=== PATIENT | female | born 1960 | race Caucasian/White ===

== ENCOUNTER 2017-12-06 12:06 | Day surgery (SDC) | payer BC, MEDICARE ==
[2017-12-06] MEDS: PHENYLEPHRINE 0.5% NASAL SPRAY 15 ML As Ordered (14:02)
[2017-12-06] MEDS: LIDOCAINE W/EPINEPHRINE 1% 20ML VIAL As Ordered (14:28)
[2017-12-06] MEDS: SILVER NITRATE APPLICATOR As Ordered ×3 (14:33→15:18)
[2017-12-06] MEDS ORDERED: MIDAZOLAM INJ 2 MG/2 ML VIAL (J2250) As Ordered (15:18)
[2017-12-06] MEDS ORDERED: fentaNYL 100 MCG/2 ML INJECTION (J3010) As Ordered (15:18)
[2017-12-06] MEDS ORDERED: ONDANSETRON 4MG/2ML VIAL (J2405) As Ordered (15:44)
[2017-12-06] MEDS: ONDANSETRON 4MG/2ML VIAL (J2405) IV (15:44)
[2017-12-06] MEDS ORDERED: fentaNYL 100 MCG/2 ML INJECTION (J3010) IV (15:45)
[2017-12-06] MEDS ORDERED: PERCOCET 5MG/325MG TAB PO (15:45)
[2017-12-06] MEDS ORDERED: HYDROmorphone HCL 1 MG/ML SYRINGE (J1170) IV (15:45)
[2017-12-06] MEDS: LR 1,000 ML IV (15:45)
[2017-12-06] MEDS ORDERED: LR 1,000 ML IV (16:00)
[2017-12-06] MEDS ORDERED: METOCLOPRAMIDE INJ 10MG/2ML VIAL (J2765) As Ordered (16:09)
[2017-12-06] MEDS: METOCLOPRAMIDE INJ 10MG/2ML VIAL (J2765) IV (16:22)
[2017-12-06] MEDS ORDERED: ACETAMINOPHEN TAB 650MG DOSE (2X325MG) As Ordered (18:34)
[2017-12-06] MEDS: ACETAMINOPHEN TAB 650MG DOSE (2X325MG) PO (18:35)
== END 2017-12-06 19:26 | disposition home or self-care (01) ==
LOC: M SDC 19:26
DX: J95.09 Other tracheostomy complication (principal); I25.2 Old myocardial infarction; J44.9 Chronic obstructive pulmonary disease, unspecified; G47.33 Obstructive sleep apnea (adult) (pediatric); G62.9 Polyneuropathy, unspecified; Z79.899 Other long term (current) drug therapy; Z79.82 Long term (current) use of aspirin; Z72.0 Tobacco use; Z99.81 Dependence on supplemental oxygen; Z96.1 Presence of intraocular lens; Z95.5 Presence of coronary angioplasty implant and graft
CPT/HCPCS: 31615

== ENCOUNTER → 2020-03-07 | Outpatient (CLI) | payer BC, MEDICARE ==
[~2020-03-07] MED LIST: ALBU83IN INH; ASPI81TA26 PO; ATIV1TAB10 PO; AZIT500T5 PO; BACT2CRE TOP; BISA5TAB13 PO; BISA5TAB29 PO; CALC1TAB9 PO; CALCTAB9 PO; COLA100C5 PO; EFFE75CA2 PO; ERYT-52 PO; FLUT22IN INH; IPRA0.00 IN; IVIG IV; LIQULIQ6 PO; LISI-542 PO; METF500T13 PO; MIRA3350 PO; MUCI600T31 PO; MUCI600T37 PO; MULT1TAB8 PO; NITR4TASL SL; PERC5TAB12 PO; PROAAER10 INH; REME15TA PO; ROBISYP PO; SENN8.6C PO; THEO200T12 PO; TYLE325T5 PO; VITA200015 PO; VITAD1000T PO; ZOFR4TAB16 PO; [UNRECOGNIZED DRUG - OTHER] PO; solumedrol IV
== END ==
LOC: M LABSMTC 10:00
PROVIDERS: ATTEND Family Medicine
DX: Z01.818 Encounter for other preprocedural examination (principal); Z11.59 Encounter for screening for other viral diseases

== ENCOUNTER 2020-03-09 06:18 | Day surgery (SDC) | payer BC, MEDICARE ==
[~2020-03-09] VITALS: Ht 165.1 cm; Wt 74.8 kg
[~2020-03-09 06:18] MED LIST changes: +LIDOCAINE 1% MDV 20ML VIAL SQ PRN
[2020-03-09] MEDS ORDERED: dexameTHASONE 4 MG/ML 1ML VIAL (J1100 PER 1MG) IV ONE (06:30)
[2020-03-09] MEDS ORDERED: LR 1,000 ML IV ONE (06:30)
[2020-03-09] MEDS ORDERED: PHENYLEPHRINE 0.5% NASAL SPRAY 15 ML As Ordered ONE (07:11)
[2020-03-09] MEDS ORDERED: LIDOCAINE W/EPINEPHRINE 1% 20ML VIAL As Ordered ONE (07:11)
[2020-03-09] MEDS ORDERED: dexameTHASONE 4 MG/ML 1ML VIAL (J1100 PER 1MG) As Ordered ONE ×2 (07:12→08:09)
[2020-03-09] MEDS ORDERED: ONDANSETRON 4MG/2ML VIAL As Ordered ONE (07:13)
[2020-03-09] MEDS ORDERED: MIDAZOLAM INJ 2MG/2ML VIAL (J2250 PER 1MG) As Ordered ONE (07:16)
[2020-03-09] MEDS ORDERED: propofoL 200 MG/20 ML VIAL As Ordered ONE (07:48)
[2020-03-09] MEDS ORDERED: fentaNYL 100 MCG/2 ML INJECTION (J3010) IV PRN (08:45)
[2020-03-09] MEDS ORDERED: LR 1,000 ML IV SCH ×2 (08:45)
[2020-03-09] MEDS ORDERED: ONDANSETRON 4MG/2ML VIAL IV PRN (08:45)
[2020-03-09 10:19] VITALS: BP 103/63
--- NOTE | 2020-03-09 14:47 | ECGEPIP ---
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
--- NOTE | 2020-03-09 16:51 | RO ---
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 PROCEDURE: 1. Dilation of the tracheal stoma. 2. Exchange of the tracheostomy tube, Shiley #6 cuffed, nonfenestrated. SURGEON: Ruddy Lira MD JEEPER OPERATOR: RALPH Paul ANESTHESIA: General. CLINICAL PREAMBLE: This 59-year-old woman who has had the tracheostomy done at another institution many years ago due to respiratory failure followed by multiple revisions surgeries done to the tracheal stoma without long-term successful complained of difficulty with using the cuffed tube at night for her ventilatory requirement. She has been receiving exchange of the tracheostomy tube every 2-3 months. However, the exchanges are becoming more difficult due to stenosis of the tracheal stoma. As such, management options including surgery listed above have been discussed. The patient understood and consented to the procedure. DESCRIPTION OF PROCEDURE: The patient was identified in preop holding, and brought to the operating room in stable condition. In supine position on the operating table, the patient received general anesthesia via the existing tracheostomy tube without difficulty. All personnel in the operating room (OR) wore the appropriate personal protective equipment (PPE), including the N95 mask due to the current COVID-19 pandemic. At this time, the shoulder roll was placed to extend the neck. The anterior neck was then prepped and draped in the usual fashion for the procedure. The trach tie was released, the tracheostomy tube was then successfully removed. The tracheal stoma was visualized and found to be free of granulation tissue. Using the three-prong tracheal dilator, the tracheostomy stoma was successfully dilated. The Shiley #6 cuffed non-fenestrated tube was then successfully introduced into the tracheal stoma and into the tracheal lumen. Ventilatory circuit was successfully reattached to the new tracheostomy tube, the cuff was inflated without difficulty. The new trach tie was then applied. At the end of the procedure, sponge and instrument counts were correct. No complication was encountered. Estimated blood loss was less than 1 mL. General anesthesia was reversed, and the patient was awakened and taken to the recovery room in stable condition.
== END 2020-03-09 10:29 | disposition home or self-care (01) ==
LOC: M SDC 06:18
PROVIDERS: ATTEND Otolaryngology
DX: J95.09 Other tracheostomy complication (principal); Y83.3 Surgical operation with formation of external stoma as the cause of abnormal reaction of the patient, or of later complication, without mention of misadventure at the time of the procedure; J44.9 Chronic obstructive pulmonary disease, unspecified; I25.10 Atherosclerotic heart disease of native coronary artery without angina pectoris; I10 Essential (primary) hypertension; I25.2 Old myocardial infarction; Z98.61 Coronary angioplasty status; R73.09 Other abnormal glucose; Z79.84 Long term (current) use of oral hypoglycemic drugs; Z79.82 Long term (current) use of aspirin; Z79.899 Other long term (current) drug therapy; Z87.891 Personal history of nicotine dependence; Z88.2 Allergy status to sulfonamides
CPT/HCPCS: 31899; 93005; J1100; J2250; J2405

== ENCOUNTER → 2020-10-17 | Outpatient (CLI) | payer BC, MEDICARE ==
[~2020-10-17] MED LIST changes: -BISA5TAB13 PO; +BISA5TAB15 PO; +D31000TA2 PO; +FLUT05CR; -LIDOCAINE 1% MDV 20ML VIAL SQ PRN; +MIRT-62 PO; -REME15TA PO; +THEO1CAP5; -VITAD1000T PO
== END ==
LOC: M LABSMTC 08:33
PROVIDERS: ATTEND Anesthesiology
DX: Z01.812 Encounter for preprocedural laboratory examination (principal); Z20.828 Contact with and (suspected) exposure to other viral communicable diseases

== ENCOUNTER → 2020-12-05 | Outpatient (CLI) | payer BC, MEDICARE ==
[~2020-12-05] MED LIST changes: -LISI-542 PO; +LISI-898 PO; -THEO1CAP5; +THEO1CAP5 PO; +[UNRECOGNIZED DRUG - OTHER] PO
== END ==
LOC: M LABSMTC 10:16
PROVIDERS: ATTEND Anesthesiology
DX: Z01.812 Encounter for preprocedural laboratory examination (principal); Z20.822 Contact with and (suspected) exposure to COVID-19

== ENCOUNTER 2020-12-10 06:04 | Day surgery (SDC) | payer BC, MEDICARE ==
[~2020-12-10] VITALS: Ht 165.1 cm; Wt 74.8 kg
[~2020-12-10 06:04] MED LIST changes: +LR 1,000 ML IV ONE; +dexameTHASONE 4 MG/ML 1ML VIAL (J1100 PER 1MG) IV ONE
[2020-12-10] MEDS ORDERED: LIDOCAINE W/EPINEPHRINE 1% 20ML VIAL As Ordered ONE (07:07)
[2020-12-10] MEDS ORDERED: PHENYLEPHRINE 0.5% NASAL SPRAY 15 ML As Ordered ONE (07:07)
[2020-12-10] MEDS ORDERED: MIDAZOLAM INJ 2MG/2ML VIAL (J2250 PER 1MG) As Ordered ONE (07:08)
[2020-12-10] MEDS ORDERED: LIDOCAINE 2% 100MG/5ML SDV (FOR ANES.) As Ordered ONE (07:08)
[2020-12-10] MEDS ORDERED: ONDANSETRON 4MG/2ML VIAL As Ordered ONE (07:08)
[2020-12-10] MEDS ORDERED: propofoL 200 MG/20 ML VIAL As Ordered ONE (07:08)
[2020-12-10] MEDS ORDERED: dexameTHASONE 4 MG/ML 1ML VIAL (J1100 PER 1MG) As Ordered ONE (07:09)
[2020-12-10] MEDS ORDERED: SILVER NITRATE APPLICATOR As Ordered ONE (07:58)
[2020-12-10] MEDS ORDERED: oxyCODONE 5MG TAB PO PRN (08:45)
[2020-12-10] MEDS ORDERED: fentaNYL 100 MCG/2 ML INJECTION (J3010) IV PRN (08:45)
[2020-12-10] MEDS ORDERED: ONDANSETRON 4MG/2ML VIAL IV PRN (08:45)
[2020-12-10] MEDS ORDERED: LR 1,000 ML IV SCH ×2 (08:45)
[2020-12-10 10:30] VITALS: BP 134/74
--- NOTE | 2021-01-06 12:22 | RO ---
OPERATIVE NOTE DATE OF OPERATION: 12/10/2020 PREOPERATIVE DIAGNOSIS: Tracheostomy complication. POSTOPERATIVE DIAGNOSIS: Tracheostomy complication. PROCEDURE PERFORMED: 1. Dilation of the tracheal stoma. 2. Placement of the #6 Shiley cuffed fenestrated tracheostomy tube. ANESTHESIA: General. 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 She requires tracheostomy at night for ventilatory support of her respiratory system. She requires change of the new tracheostomy tube approximately every 2-3 months. Due to the stenotic nature of the tracheostomy stoma, the patient was brought to the operating room to have the procedure performed. Risks and benefits of the procedure have been discussed. She understood and consented to the procedure. DESCRIPTION OF PROCEDURE: The patient was identified and brought to the operating room in stable condition. In the supine position on the operating table, the patient received general anesthesia followed by ventilation via the existing tracheostomy tube. The existing tracheostomy tube was then successfully extracted. Using the tracheal dilator, as well as a long nasal speculum, the tracheostomy stoma was successfully dilated. No evidence of gross granulation tissue was identified around the tracheostomy stoma site. No evidence of gross mucosal lesion was noted at the level of the tracheal stoma as well. At this time, the #6 cuffed fenestrated Shiley tracheostomy tube was inserted under direct visualization into the trachea. Good ventilatory support was noted upon connection of the anesthesia ventilatory circuit to the new tracheostomy tube. At the end of the procedure, sponge and instrument counts were correct. No complications were noted. Estimated blood loss was less than 1 mL. General anesthesia was reversed and the patient was awakened and taken to the recovery room in stable condition.
== END 2020-12-10 10:30 | disposition home or self-care (01) ==
LOC: M SDC 06:04
PROVIDERS: ATTEND Otolaryngology
DX: J95.00 Unspecified tracheostomy complication (principal); J44.9 Chronic obstructive pulmonary disease, unspecified; G61.81 Chronic inflammatory demyelinating polyneuritis; Z87.891 Personal history of nicotine dependence; I25.10 Atherosclerotic heart disease of native coronary artery without angina pectoris; Z98.61 Coronary angioplasty status; E11.9 Type 2 diabetes mellitus without complications; I10 Essential (primary) hypertension; I25.2 Old myocardial infarction; Z79.82 Long term (current) use of aspirin; Z79.899 Other long term (current) drug therapy; F41.9 Anxiety disorder, unspecified; L40.9 Psoriasis, unspecified; R32 Unspecified urinary incontinence
CPT/HCPCS: 31502; J1100; J2250; J2405

== ENCOUNTER → 2021-05-07 | Outpatient (CLI) | payer BC, MEDICARE ==
[~2021-05-07] MED LIST changes: +CALTTAB6 PO; +ERGO500029 PO; -LR 1,000 ML IV ONE; +METF10004 PO; +MM S100C PO; +SALMDISK INH; +VITA30004 PO; -dexameTHASONE 4 MG/ML 1ML VIAL (J1100 PER 1MG) IV ONE
== END ==
LOC: M LABSMTC 11:49
PROVIDERS: ATTEND Anesthesiology
DX: Z01.818 Encounter for other preprocedural examination (principal); Z20.822 Contact with and (suspected) exposure to COVID-19

== ENCOUNTER 2021-05-12 07:53 | Day surgery (SDC) | payer BC, MEDICARE ==
[~2021-05-12] VITALS: Ht 165.1 cm; Wt 70.7 kg
[~2021-05-12 07:53] MED LIST changes: +LIDOCAINE 1% MDV 20ML VIAL SQ PRN; +LR 1,000 ML IV ONE; +dexameTHASONE 4 MG/ML 1ML VIAL (J1100 PER 1MG) IV ONE
[2021-05-12] MEDS ORDERED: METOCLOPRAMIDE INJ 10MG/2ML VIAL (J2765 PER 1) As Ordered ONE (09:17)
[2021-05-12] MEDS ORDERED: ONDANSETRON 4MG/2ML VIAL As Ordered ONE (09:17)
[2021-05-12] MEDS ORDERED: MIDAZOLAM INJ 2MG/2ML VIAL (J2250 PER 1MG) As Ordered ONE (09:17)
[2021-05-12] MEDS ORDERED: fentaNYL 100 MCG/2 ML INJECTION (J3010) As Ordered ONE (09:18)
[2021-05-12] MEDS ORDERED: LIDOCAINE W/EPINEPHRINE 1% 20ML VIAL As Ordered ONE (09:22)
[2021-05-12] MEDS ORDERED: PHENYLEPHRINE 0.5% NASAL SPRAY 15 ML As Ordered ONE (09:23)
[2021-05-12] MEDS ORDERED: METHYLENE BLUE 0.5% (5MG/ML) 10 ML AMP (PROVAYBLUE) As Ordered ONE (09:23)
[2021-05-12] MEDS ORDERED: CETACAINE SPRAY 5GM As Ordered ONE (09:57)
[2021-05-12] MEDS ORDERED: LIDOCAINE 2% 100MG/5ML SDV (FOR ANES.) As Ordered ONE (10:13)
[2021-05-12] MEDS ORDERED: propofoL 200 MG/20 ML VIAL As Ordered ONE (10:13)
[2021-05-12] MEDS ORDERED: dexameTHASONE 4 MG/ML 1ML VIAL (J1100 PER 1MG) As Ordered ONE (10:13)
[2021-05-12] MEDS ORDERED: oxyCODONE 5MG TAB PO PRN (10:30)
[2021-05-12] MEDS ORDERED: ONDANSETRON 4MG/2ML VIAL IV PRN (10:30)
[2021-05-12] MEDS ORDERED: METOCLOPRAMIDE INJ 10MG/2ML VIAL (J2765 PER 1) IV PRN (10:30)
[2021-05-12] MEDS ORDERED: MEPERIDINE INJ 25 MG/ML VIAL (J2175) IV PRN (10:30)
[2021-05-12] MEDS ORDERED: fentaNYL 100 MCG/2 ML INJECTION (J3010) IV PRN (10:30)
[2021-05-12] MEDS ORDERED: LR 1,000 ML IV SCH ×2 (10:30→10:35)
[2021-05-12 11:32] VITALS: BP 95/51
--- NOTE | 2021-05-13 09:50 | RO ---
OPERATIVE NOTE DATE OF OPERATION: 05/12/2021 PREOPERATIVE DIAGNOSIS: Tracheostomy complication. POSTOPERATIVE DIAGNOSIS: Tracheostomy complication. PROCEDURE: Exchange of tracheostomy tube with a Shiley #6 cuff nonfenestrated. SURGEON: Ruddy Lira MD. WIRE INSERTER: None. ANESTHESIA: General. CLINICAL PREAMBLE: This 60-year-old woman has had tracheostomy with multiple revision tracheostomy procedures performed in the past decade. The tracheostomy stoma remains stenotic and difficult to have tracheostomy tube exchange in the office. The patient required using the ventilatory machine at night to maintain adequate oxygenation. Periodic exchange of the tracheostomy every five to six months is needed. The patient is intolerant to have the tracheostomy tube exchanged in the office. Management options including exchange of the tracheostomy tube in the operating room under general anesthesia have been discussed. The patient understood and consented to the procedure. OR NARRATION: Patient was identified in preoperative holding and brought to the operating room in stable condition. In the supine position on the operating room table, patient received propofol and oxygenation via the existing tracheostomy tube. Cetacaine spray was applied into the tracheostomy tube and around the tracheostomy stoma. The tracheostomy tube was then successfully removed. The tracheostomy stoma was then dilated using the tracheostomy dilator. No granulation tissue was noted around the tracheostomy stoma. A new Shiley #6 cuffed nonfenestrated tube was then successfully inserted into the trachea lumen under direct visualization. Good breathing was noted in both sides of the lungs. At the end of the procedure, sponge and instrument counts were correct. No complications were encountered. Estimated blood loss was 1 mL. General anesthesia was reviewed, the patient was awakened, and taken to the recovery room in stable condition.
== END 2021-05-12 11:32 | disposition home or self-care (01) ==
LOC: M SDC 07:53
PROVIDERS: ATTEND Otolaryngology
DX: J95.09 Other tracheostomy complication (principal); J96.10 Chronic respiratory failure, unspecified whether with hypoxia or hypercapnia; G61.81 Chronic inflammatory demyelinating polyneuritis; I25.10 Atherosclerotic heart disease of native coronary artery without angina pectoris; I25.2 Old myocardial infarction; Z95.5 Presence of coronary angioplasty implant and graft; I10 Essential (primary) hypertension; E11.9 Type 2 diabetes mellitus without complications; F41.9 Anxiety disorder, unspecified; J44.9 Chronic obstructive pulmonary disease, unspecified; Z87.891 Personal history of nicotine dependence; Z88.2 Allergy status to sulfonamides; Z79.899 Other long term (current) drug therapy; Z79.82 Long term (current) use of aspirin; Z79.2 Long term (current) use of antibiotics; Z79.51 Long term (current) use of inhaled steroids; Z79.84 Long term (current) use of oral hypoglycemic drugs
CPT/HCPCS: 31502; J1100; J2250; J2405; J3010

== ENCOUNTER → 2021-10-08 | Day surgery (SDC) | payer BC, MEDICARE ==
[~2021-10-08] MED LIST changes: +ACETAMINOPHEN TAB 650MG DOSE (2X325MG) PO PRN; +BUPIVACAINE/EPIN 0.25% 30 ML VIAL As Ordered ONE; +HOME MED LIST COMPLETE! XX SCH; -LIDOCAINE 1% MDV 20ML VIAL SQ PRN; +LIDOCAINE 2% 100MG/5ML SDV (FOR ANES.) As Ordered ONE; -LISI-898 PO; +LISI5TAB11 PO; -LR 1,000 ML IV ONE; +LR 1,000 ML IV SCH; +MIDAZOLAM INJ 2MG/2ML VIAL (J2250 PER 1MG) As Ordered ONE; +MULT400T10 PO; +ONDANSETRON 4MG/2ML VIAL IV PRN; +[UNRECOGNIZED DRUG - OTHER] IV; -dexameTHASONE 4 MG/ML 1ML VIAL (J1100 PER 1MG) IV ONE; +fentaNYL 100 MCG/2 ML INJECTION As Ordered ONE; +propofoL 200 MG/20 ML VIAL As Ordered ONE
[2021-10-08 11:31] LABS: RSV AMPLIFICATION NEGATIVE (NEGATIVE)
[2021-10-08 13:25] VITALS: BP 106/61
== END | disposition home or self-care (01) ==
LOC: M ED 08:56 → M SDC 08:57
PROVIDERS: ATTEND Otolaryngology
DX: J96.10 Chronic respiratory failure, unspecified whether with hypoxia or hypercapnia (principal); I25.10 Atherosclerotic heart disease of native coronary artery without angina pectoris; I10 Essential (primary) hypertension; I25.2 Old myocardial infarction; Z95.5 Presence of coronary angioplasty implant and graft; E11.9 Type 2 diabetes mellitus without complications; F41.9 Anxiety disorder, unspecified; J44.9 Chronic obstructive pulmonary disease, unspecified; Z87.891 Personal history of nicotine dependence; Z88.2 Allergy status to sulfonamides; Z79.899 Other long term (current) drug therapy; Z79.2 Long term (current) use of antibiotics; Z79.51 Long term (current) use of inhaled steroids; Z79.84 Long term (current) use of oral hypoglycemic drugs
CPT/HCPCS: 31502; 87631; 99284; J2250; J3010

== ENCOUNTER → 2021-10-20 | Outpatient (CLI) | payer BC, MEDICARE ==
[~2021-10-20] MED LIST changes: -ACETAMINOPHEN TAB 650MG DOSE (2X325MG) PO PRN; -BUPIVACAINE/EPIN 0.25% 30 ML VIAL As Ordered ONE; -HOME MED LIST COMPLETE! XX SCH; +ISOVUE-370 76% 100ML VIAL As Ordered ONE; -LIDOCAINE 2% 100MG/5ML SDV (FOR ANES.) As Ordered ONE; +LISI-898 PO; -LISI5TAB11 PO; -LR 1,000 ML IV SCH; -MIDAZOLAM INJ 2MG/2ML VIAL (J2250 PER 1MG) As Ordered ONE; -MULT400T10 PO; -ONDANSETRON 4MG/2ML VIAL IV PRN; -[UNRECOGNIZED DRUG - OTHER] IV; -fentaNYL 100 MCG/2 ML INJECTION As Ordered ONE; -propofoL 200 MG/20 ML VIAL As Ordered ONE
--- NOTE | 2021-10-20 12:38 | REPVR ---
PROCEDURE INFORMATION: Exam: CT Neck With Contrast Exam date and time: 10/20/2021 12:07 PM Age: 60 years old Clinical indication: Condition or disease; Other: Trach status; Prior surgery TECHNIQUE: Imaging protocol: Computed tomography images of the neck with contrast. Radiation optimization: All CT scans at this facility use at least one of these dose optimization techniques: automated exposure control; mA and/or kV adjustment per patient size (includes targeted exams where dose is matched to clinical indication); or iterative reconstruction. Contrast material: ISOVUE 370; Contrast volume: 75 ml; Contrast route: INTRAVENOUS (IV); COMPARISON: No relevant prior studies available. FINDINGS: Nasopharynx: Unremarkable. Oropharynx: Unremarkable. No significant tonsillar enlargement. Hypopharynx: Unremarkable. Larynx: Unremarkable. Normal epiglottis. Retropharyngeal space: Unremarkable. Submandibular/Parotid glands: Normal. Glands are normal in size. Thyroid: Normal. No enlarged or calcified nodules. Lymph nodes: Unremarkable. No lymphadenopathy. Trachea: Tracheostomy to in place. Trachea is narrowed around to at the insertion site. The tip of the tracheostomy is above donavan at T2-T3 level. Lungs: Unremarkable as visualized. Bones/joints: Unremarkable. No acute fracture. Vasculature: There is prominent carotid atherosclerotic change was limits evaluation. There is no severe stenosis or vascular occlusion. Vertebral arteries are patent bilaterally. Soft tissues: See "Vasculature" finding. IMPRESSION: Tracheostomy to appears appropriately positioned. Electronically signed by: Mariposa Edgar On 10/20/2021 12:38:28 PM
--- NOTE | 2021-10-21 07:00 | REP ---
INDICATION: TRACH STATUS COMPARISON: None TECHNIQUE: Axial contrast enhanced images from the thoracic inlet to the upper abdomen with coronal and sagittal reformations using 75 ml Isovue 370 intravenous contrast material. This CT examination was performed using the following dose reduction techniques: Automated exposure control, adjustment of mA and/or kv according to the patient's size, and use of iterative reconstruction technique. FINDINGS: A tracheostomy is identified in satisfactory position and the surrounding soft tissues are normal. Tracheostomy extends to approximately 2.8 cm above the donavan. The bilateral lung vargas demonstrate decreased inspiratory effort with prominent appearance to the pulmonary vasculature and interstitium as well as areas of consolidation/partial atelectasis with air bronchograms involving right middle lobe and bilateral lower lobes. No effusion. No pneumothorax. Few scattered reactive mediastinal and predominately right hilar lymph nodes noted. Atherosclerotic changes to the thoracic aorta and coronary arteries noted without aortic aneurysm or dissection. No cardiomegaly or pericardial effusion. IMPRESSION: 1. Tracheostomy in normal satisfactory position. 2. Areas of consolidation/partial collapse involving right middle lobe and bilateral lower lobes. <Electronically signed by Trev Bernard > 10/21/21 [id number]
== END ==
LOC: M RAD 11:02
PROVIDERS: ATTEND Otolaryngology
DX: Z93.0 Tracheostomy status (principal)
CPT/HCPCS: 70491; 71260; Q9967

== ENCOUNTER → 2022-01-08 | Outpatient (CLI) | payer BC, MEDICARE ==
[~2022-01-08] MED LIST changes: -ISOVUE-370 76% 100ML VIAL As Ordered ONE; -LISI-898 PO; +LISI5TAB11 PO; +MULT400T10 PO; +[UNRECOGNIZED DRUG - OTHER] IV
== END ==
LOC: M LABSMTC 09:49
PROVIDERS: ATTEND Anesthesiology
DX: Z01.818 Encounter for other preprocedural examination (principal); Z11.52 Encounter for screening for COVID-19

== ENCOUNTER 2022-01-13 06:04 | Day surgery (SDC) | payer BC, MEDICARE ==
[~2022-01-13] VITALS: Ht 165.1 cm; Wt 65.7 kg
[~2022-01-13 06:04] MED LIST changes: -D31000TA2 PO; +LR 1,000 ML IV ONE; +VITA100093 PO
[2022-01-13 06:46] LABS: HEMATOCRIT 36.5 % (36.0-47.0); HEMOGLOBIN 12.1 g/dl (12.0-15.5); MEAN CORPUSCULAR HEMOGLOBIN 29.2 pg (27.0-33.0); MEAN CORPUSCULAR HGB CONC 33.2 g/dl (32.0-36.5); PLATELET COUNT, AUTOMATED 258 10^3/uL (150-450); RED BLOOD COUNT 4.15 10^6/uL (4.00-5.40); WHITE BLOOD COUNT 6.7 10^3/uL (4.0-10.0)
[2022-01-13] MEDS ORDERED: LIDOCAINE W/EPINEPHRINE 1% 20ML VIAL As Ordered ONE (07:12)
[2022-01-13] MEDS ORDERED: ONDANSETRON 4MG/2ML VIAL As Ordered ONE (07:16)
[2022-01-13] MEDS ORDERED: propofoL 200 MG/20 ML VIAL As Ordered ONE (07:16)
[2022-01-13] MEDS ORDERED: LIDOCAINE 2% 100MG/5ML SDV (FOR ANES.) As Ordered ONE (07:16)
[2022-01-13] MEDS ORDERED: fentaNYL 100 MCG/2 ML INJECTION As Ordered ONE ×2 (07:16→08:24)
[2022-01-13] MEDS ORDERED: dexameTHASONE 4 MG/ML 1ML VIAL (J1100 PER 1MG) As Ordered ONE (07:16)
[2022-01-13] MEDS ORDERED: MIDAZOLAM INJ 2MG/2ML VIAL (J2250 PER 1MG) As Ordered ONE (07:16)
[2022-01-13] MEDS ORDERED: SILVER NITRATE APPLICATOR As Ordered ONE (08:16)
[2022-01-13] MEDS ORDERED: oxyCODONE 5MG TAB PO PRN (09:05)
[2022-01-13] MEDS ORDERED: ONDANSETRON 4MG/2ML VIAL IV PRN (09:05)
[2022-01-13] MEDS ORDERED: LR 1,000 ML IV SCH ×2 (09:05)
[2022-01-13 09:15] VITALS: BP 98/56
== END 2022-01-13 09:40 | disposition home or self-care (01) ==
LOC: M SDC 06:04
PROVIDERS: ATTEND Otolaryngology
DX: J95.09 Other tracheostomy complication (principal); Y83.3 Surgical operation with formation of external stoma as the cause of abnormal reaction of the patient, or of later complication, without mention of misadventure at the time of the procedure; G61.81 Chronic inflammatory demyelinating polyneuritis; I11.9 Hypertensive heart disease without heart failure; I25.10 Atherosclerotic heart disease of native coronary artery without angina pectoris; I25.2 Old myocardial infarction; Z95.5 Presence of coronary angioplasty implant and graft; I95.9 Hypotension, unspecified; R73.03 Prediabetes; F41.9 Anxiety disorder, unspecified; J44.9 Chronic obstructive pulmonary disease, unspecified; Z87.891 Personal history of nicotine dependence; Z88.2 Allergy status to sulfonamides; Z79.899 Other long term (current) drug therapy; Z79.82 Long term (current) use of aspirin; Z79.2 Long term (current) use of antibiotics; Z79.51 Long term (current) use of inhaled steroids
CPT/HCPCS: 31502; 36415; 85027; 93005; J2250; J2405; J3010

== ENCOUNTER → 2022-06-06 | Outpatient (CLI) | payer BC, MEDICARE ==
[~2022-06-06] MED LIST changes: +ALBU2.5V10 INH; -ALBU83IN INH; -ERYT-52 PO; +ERYT-88 PO; -LR 1,000 ML IV ONE
== END ==
LOC: M LABSMTC 11:17
PROVIDERS: ATTEND Anesthesiology
DX: Z11.52 Encounter for screening for COVID-19 (principal); Z20.822 Contact with and (suspected) exposure to COVID-19

== ENCOUNTER 2022-06-09 11:04 | Day surgery (SDC) | payer MEDICARE ==
[~2022-06-09] VITALS: Ht 165.1 cm; Wt 69.9 kg
[2022-06-09] MEDS ORDERED: LIDOCAINE W/EPINEPHRINE 1% 20ML VIAL As Ordered ONE (13:10)
[2022-06-09] MEDS ORDERED: propofoL 200 MG/20 ML VIAL As Ordered ONE (13:34)
[2022-06-09] MEDS ORDERED: dexameTHASONE 4 MG/ML 1ML VIAL (J1100 PER 1MG) As Ordered ONE (13:34)
[2022-06-09] MEDS ORDERED: fentaNYL 100 MCG/2 ML INJECTION As Ordered ONE (13:34)
[2022-06-09] MEDS ORDERED: MIDAZOLAM INJ 2MG/2ML VIAL (J2250 PER 1MG) As Ordered ONE (13:34)
[2022-06-09] MEDS ORDERED: ONDANSETRON 4MG 2ML VIAL As Ordered ONE (13:34)
[2022-06-09] MEDS ORDERED: fentaNYL 100 MCG/2 ML INJECTION IV PRN (14:05)
[2022-06-09] MEDS ORDERED: LR 1,000 ML IV SCH (14:05)
[2022-06-09] MEDS ORDERED: MORPHINE 2 MG/ML 1ML VIAL IV PRN (14:05)
[2022-06-09] MEDS ORDERED: ONDANSETRON 4MG 2ML VIAL IV PRN (14:05)
[2022-06-09 15:40] VITALS: BP 129/63
== END 2022-06-09 15:45 | disposition home or self-care (01) ==
LOC: M SDC 11:04
PROVIDERS: ATTEND Otolaryngology
DX: J95.00 Unspecified tracheostomy complication (principal); J96.10 Chronic respiratory failure, unspecified whether with hypoxia or hypercapnia; J44.9 Chronic obstructive pulmonary disease, unspecified; I51.9 Heart disease, unspecified; Z88.2 Allergy status to sulfonamides; Z79.899 Other long term (current) drug therapy; Z79.82 Long term (current) use of aspirin
CPT/HCPCS: 31502; J1100; J2250; J2405; J3010

== ENCOUNTER → 2022-10-11 | Outpatient (CLI) | payer MEDICARE, BC ==
[~2022-10-11] MED LIST changes: +ATIV1TAB10
== END ==
LOC: M LABSMTC 11:29
PROVIDERS: ATTEND Anesthesiology
DX: Z01.812 Encounter for preprocedural laboratory examination (principal); Z11.52 Encounter for screening for COVID-19

== ENCOUNTER 2022-10-13 09:41 | Day surgery (SDC) | payer MEDICARE, BC ==
[~2022-10-13] VITALS: Ht 165.1 cm; Wt 70.3 kg
[~2022-10-13 09:41] MED LIST changes: +NS 1,000 ML IV ONE
[2022-10-13] MEDS ORDERED: LIDOCAINE W/EPINEPHRINE 1% 20ML VIAL As Ordered ONE (10:39)
[2022-10-13] MEDS ORDERED: PHENYLEPHRINE 0.5% NASAL SPRAY 15 ML As Ordered ONE (10:40)
[2022-10-13] MEDS ORDERED: MIDAZOLAM INJ 2MG/2ML VIAL (J2250 PER 1MG) As Ordered ONE (11:01)
[2022-10-13] MEDS ORDERED: fentaNYL 100 MCG/2 ML INJECTION As Ordered ONE (11:02)
[2022-10-13] MEDS ORDERED: ACETAMINOPHEN 1000MG 100ML IV BAG As Ordered ONE (11:26)
[2022-10-13] MEDS ORDERED: LR 1,000 ML IV SCH ×2 (11:30→12:20)
[2022-10-13] MEDS ORDERED: ONDANSETRON 4MG 2ML VIAL IV PRN (11:30)
[2022-10-13] MEDS ORDERED: fentaNYL 100 MCG/2 ML INJECTION IV PRN (11:30)
[2022-10-13] MEDS ORDERED: METOCLOPRAMIDE INJ 10MG/2ML VIAL IV PRN (12:30)
[2022-10-13 14:16] VITALS: BP 138/82
== END 2022-10-13 14:26 | disposition home or self-care (01) ==
LOC: M SDC 09:41
PROVIDERS: ATTEND Otolaryngology
DX: J95.09 Other tracheostomy complication (principal); J44.9 Chronic obstructive pulmonary disease, unspecified; I10 Essential (primary) hypertension; E11.9 Type 2 diabetes mellitus without complications; I25.2 Old myocardial infarction; Z95.5 Presence of coronary angioplasty implant and graft; I25.10 Atherosclerotic heart disease of native coronary artery without angina pectoris; M35.9 Systemic involvement of connective tissue, unspecified; Z88.2 Allergy status to sulfonamides; Z79.899 Other long term (current) drug therapy; Z79.51 Long term (current) use of inhaled steroids; Z79.82 Long term (current) use of aspirin; Z79.2 Long term (current) use of antibiotics; Z79.84 Long term (current) use of oral hypoglycemic drugs
CPT/HCPCS: 31502; 93005; J0131; J2250; J2405; J2765; J3010

== ENCOUNTER → 2023-01-19 | Outpatient (CLI) | payer MEDICARE, BC ==
[~2023-01-19] MED LIST changes: -ATIV1TAB10; -NS 1,000 ML IV ONE
== END ==
LOC: M LABSMTC 11:04
PROVIDERS: ATTEND Anesthesiology
DX: Z01.812 Encounter for preprocedural laboratory examination (principal); Z20.822 Contact with and (suspected) exposure to COVID-19

== ENCOUNTER 2023-01-24 11:37 | Day surgery (SDC) | payer MEDICARE, BC ==
[~2023-01-24] VITALS: Ht 162.6 cm; Wt 71.2 kg
[2023-01-24] MEDS ORDERED: LR 1,000 ML IV SCH (11:55)
[2023-01-24] MEDS ORDERED: fentaNYL 100 MCG/2 ML INJECTION As Ordered ONE (12:25)
[2023-01-24] MEDS ORDERED: propofoL 200 MG/20 ML VIAL As Ordered ONE (12:25)
[2023-01-24] MEDS ORDERED: LIDOCAINE 2% 100MG/5ML SDV (FOR ANES.) As Ordered ONE (12:25)
[2023-01-24] MEDS ORDERED: MIDAZOLAM INJ 2MG/2ML VIAL As Ordered ONE (12:25)
[2023-01-24] MEDS ORDERED: ONDANSETRON 4MG 2ML VIAL As Ordered ONE (12:52)
[2023-01-24] MEDS ORDERED: LIDOCAINE W/EPINEPHRINE 1% 20ML VIAL As Ordered ONE (12:57)
[2023-01-24 14:55] VITALS: BP 116/61
== END 2023-01-24 15:10 | disposition home or self-care (01) ==
LOC: M SDC 11:37
PROVIDERS: ATTEND Otolaryngology
DX: J95.09 Other tracheostomy complication (principal); Y72.2 Prosthetic and other implants, materials and accessory otorhinolaryngological devices associated with adverse incidents; J96.12 Chronic respiratory failure with hypercapnia; J44.9 Chronic obstructive pulmonary disease, unspecified; I51.9 Heart disease, unspecified; I25.10 Atherosclerotic heart disease of native coronary artery without angina pectoris; E11.9 Type 2 diabetes mellitus without complications; F41.9 Anxiety disorder, unspecified; F32.A Depression, unspecified; Z77.22 Contact with and (suspected) exposure to environmental tobacco smoke (acute) (chronic); Z88.2 Allergy status to sulfonamides; Z79.899 Other long term (current) drug therapy; Z79.82 Long term (current) use of aspirin; Z79.2 Long term (current) use of antibiotics; Z79.84 Long term (current) use of oral hypoglycemic drugs; Z79.51 Long term (current) use of inhaled steroids
CPT/HCPCS: 31502; J1100; J2250; J2405; J3010

== ENCOUNTER 2023-06-05 09:27 | Day surgery (SDC) | payer MEDICARE, BC ==
[~2023-06-05] VITALS: Ht 165.1 cm; Wt 72.6 kg
[~2023-06-05 09:27] MED LIST changes: +ALBU8.5H INH; +DOCU100C16 PO; +LISI2.5T9 PO; +METH50VL IV; +STRI1AER2 INH; +VENL75CA47 PO
[2023-06-05] MEDS ORDERED: LR 1,000 ML IV SCH ×2 (10:30→12:05)
[2023-06-05] MEDS ORDERED: ROCURONIUM BROMIDE 50MG/5ML VIAL As Ordered ONE (10:55)
[2023-06-05] MEDS ORDERED: propofoL 200 MG/20 ML VIAL As Ordered ONE (10:55)
[2023-06-05] MEDS ORDERED: LIDOCAINE 2% 100MG/5ML SDV (FOR ANES.) As Ordered ONE (10:55)
[2023-06-05] MEDS ORDERED: ONDANSETRON 4MG 2ML VIAL As Ordered ONE (10:55)
[2023-06-05] MEDS ORDERED: fentaNYL 100 MCG/2 ML INJECTION As Ordered ONE (10:58)
[2023-06-05] MEDS ORDERED: MIDAZOLAM INJ 2MG/2ML VIAL As Ordered ONE (10:59)
[2023-06-05] MEDS ORDERED: PHENYLEPHRINE 0.5% NASAL SPRAY 15 ML As Ordered ONE (11:33)
[2023-06-05] MEDS ORDERED: LIDOCAINE W/EPINEPHRINE 1% 20ML VIAL As Ordered ONE (11:33)
[2023-06-05] MEDS ORDERED: HYDROMORPHONE HCL 0.5 MG/ 0.5 ML SYRINGE IV PRN (12:05)
[2023-06-05] MEDS ORDERED: oxyCODONE 5MG TAB PO PRN (12:05)
[2023-06-05] MEDS ORDERED: fentaNYL 100 MCG/2 ML INJECTION IV PRN (12:05)
[2023-06-05] MEDS ORDERED: ONDANSETRON 4MG 2ML VIAL IV PRN (12:05)
[2023-06-05 14:00] VITALS: BP 119/62; TEMP 97.9; O2SAT 90
== END 2023-06-05 14:03 | disposition home or self-care (01) ==
LOC: M SDC 09:27
PROVIDERS: ATTEND Otolaryngology
DX: J95.00 Unspecified tracheostomy complication (principal); I11.9 Hypertensive heart disease without heart failure; I25.10 Atherosclerotic heart disease of native coronary artery without angina pectoris; E11.9 Type 2 diabetes mellitus without complications; I25.2 Old myocardial infarction; Z86.14 Personal history of Methicillin resistant Staphylococcus aureus infection; F41.9 Anxiety disorder, unspecified; F32.A Depression, unspecified; J44.9 Chronic obstructive pulmonary disease, unspecified; Z79.51 Long term (current) use of inhaled steroids; Z79.82 Long term (current) use of aspirin; Z79.84 Long term (current) use of oral hypoglycemic drugs; Z79.899 Other long term (current) drug therapy
CPT/HCPCS: 31502; J1100; J2250; J2405; J3010

== ENCOUNTER 2023-09-29 08:54 | Day surgery (SDC) | payer MEDICARE, BC ==
[~2023-09-29] VITALS: Ht 165.1 cm; Wt 68.5 kg
[~2023-09-29 08:54] MED LIST changes: -MIRT-62 PO; +MIRT-88 PO; +TAMS1CAP17 PO; +VENL37.598 PO
[2023-09-29] MEDS ORDERED: LR 1,000 ML IV SCH (09:35)
[2023-09-29] MEDS ORDERED: PHENYLEPHRINE 0.5% NASAL SPRAY 15 ML As Ordered ONE (11:29)
[2023-09-29] MEDS ORDERED: LIDOCAINE 1% SDV 30ML VIAL As Ordered ONE (11:30)
[2023-09-29] MEDS ORDERED: MIDAZOLAM INJ 2MG/2ML VIAL As Ordered ONE (11:33)
[2023-09-29] MEDS ORDERED: propofoL 200 MG/20 ML VIAL As Ordered ONE (11:33)
[2023-09-29] MEDS ORDERED: fentaNYL 100 MCG/2 ML INJECTION As Ordered ONE (11:33)
[2023-09-29] MEDS ORDERED: ONDANSETRON 4MG 2ML VIAL As Ordered ONE (11:34)
[2023-09-29] MEDS ORDERED: LIDOCAINE 2% 100MG/5ML SDV (FOR ANES.) As Ordered ONE (11:34)
[2023-09-29] MEDS ORDERED: ROCURONIUM BROMIDE 50MG/5ML VIAL As Ordered ONE (11:34)
[2023-09-29] MEDS ORDERED: PHENYLephrine 500MCG 5ML (100MCG/ML) SYRINGE As Ordered ONE (12:10)
[2023-09-29] MEDS ORDERED: SUGAMMADEX SODIUM 500 MG/5 ML VIAL (BRIDION) As Ordered ONE (12:15)
[2023-09-29] MEDS ORDERED: fentaNYL 100 MCG/2 ML INJECTION IV PRN (12:25)
[2023-09-29] MEDS ORDERED: oxyCODONE 5MG TAB PO PRN (12:25)
[2023-09-29] MEDS ORDERED: MORPHINE 2 MG/ML 1ML VIAL IV PRN (12:25)
[2023-09-29] MEDS ORDERED: ONDANSETRON 4MG 2ML VIAL IV PRN (12:25)
[2023-09-29 13:10] VITALS: TEMP 97.7
[2023-09-29 13:30] VITALS: BP 107/66; O2SAT 96
[2023-09-29] MEDS ORDERED: ACETAMINOPHEN 325 MG TAB PO ONE (14:15)
== END 2023-09-29 14:15 | disposition home or self-care (01) ==
LOC: M SDC 08:54
PROVIDERS: ATTEND Otolaryngology
DX: J95.03 Malfunction of tracheostomy stoma (principal); E11.9 Type 2 diabetes mellitus without complications; I10 Essential (primary) hypertension; I25.2 Old myocardial infarction; I25.10 Atherosclerotic heart disease of native coronary artery without angina pectoris; J44.9 Chronic obstructive pulmonary disease, unspecified; Z79.899 Other long term (current) drug therapy; Z79.82 Long term (current) use of aspirin; Z95.5 Presence of coronary angioplasty implant and graft; Z79.84 Long term (current) use of oral hypoglycemic drugs; Z88.2 Allergy status to sulfonamides; Z87.891 Personal history of nicotine dependence
CPT/HCPCS: 31502; J1100; J2250; J2371; J2405; J3010

== ENCOUNTER 2024-01-18 08:33 | Day surgery (SDC) | payer MEDICARE, BC ==
[~2024-01-18] VITALS: Ht 165.1 cm; Wt 70.1 kg
[~2024-01-18 08:33] MED LIST changes: +FLOVENT INH; +SODI0.9N3
[2024-01-18] MEDS: LR 1,000 ML IV SCH (10:05)
[2024-01-18] MEDS ORDERED: GLUCAGON INJ 1MG VIAL SC PRN (10:25)
[2024-01-18] MEDS ORDERED: GLUCOSE 4GM CHEW TABLET PO PRN (10:25)
[2024-01-18] MEDS ORDERED: DEXTROSE 50% 50ML SYRINGE IV PRN (10:25)
[2024-01-18] MEDS: INSULIN LISPRO (NovoLOG) PER UNIT SC PRN (10:33)
[2024-01-18] MEDS ORDERED: MIDAZOLAM INJ 2MG/2ML VIAL As Ordered ONE (11:10)
[2024-01-18] MEDS ORDERED: METOCLOPRAMIDE INJ 10MG/2ML VIAL As Ordered ONE (11:10)
[2024-01-18] MEDS ORDERED: fentaNYL 100 MCG/2 ML INJECTION As Ordered ONE (11:10)
[2024-01-18] MEDS ORDERED: LIDOCAINE 2% 100MG/5ML SDV (FOR ANES.) As Ordered ONE (11:10)
[2024-01-18] MEDS ORDERED: dexmedeTOMIDine (4MCG/ML)200MCG/50ML BTL (PRECEDEX) As Ordered ONE (11:10)
[2024-01-18] MEDS ORDERED: ACETAMINOPHEN 1000MG 100ML IV BAG As Ordered ONE (11:10)
[2024-01-18] MEDS ORDERED: ONDANSETRON 4MG 2ML VIAL As Ordered ONE (11:10)
[2024-01-18] MEDS ORDERED: propofoL 200 MG/20 ML VIAL As Ordered ONE (11:10)
[2024-01-18] MEDS ORDERED: ONDANSETRON 4MG 2ML VIAL IV PRN (11:35)
[2024-01-18] MEDS ORDERED: MORPHINE 2 MG/ML 1ML VIAL IV PRN (11:35)
[2024-01-18] MEDS ORDERED: fentaNYL 100 MCG/2 ML INJECTION IV PRN (11:35)
[2024-01-18] MEDS ORDERED: oxyCODONE 5MG TAB PO PRN (11:35)
[2024-01-18 12:42] VITALS: BP 132/79; TEMP 97.6; O2SAT 93
== END 2024-01-18 13:00 | disposition home or self-care (01) ==
LOC: M SDC 08:33
PROVIDERS: ATTEND Otolaryngology
DX: J95.03 Malfunction of tracheostomy stoma (principal); J96.12 Chronic respiratory failure with hypercapnia; J43.8 Other emphysema; G61.81 Chronic inflammatory demyelinating polyneuritis; Z99.11 Dependence on respirator [ventilator] status; I25.10 Atherosclerotic heart disease of native coronary artery without angina pectoris; E11.9 Type 2 diabetes mellitus without complications; I10 Essential (primary) hypertension; Z79.899 Other long term (current) drug therapy; Z79.84 Long term (current) use of oral hypoglycemic drugs; Z79.51 Long term (current) use of inhaled steroids; Z77.22 Contact with and (suspected) exposure to environmental tobacco smoke (acute) (chronic); I25.2 Old myocardial infarction; Z95.5 Presence of coronary angioplasty implant and graft; Z88.2 Allergy status to sulfonamides
CPT/HCPCS: 31502; J0131; J1100; J1815; J2250; J2405; J2765; J3010

== ENCOUNTER 2024-04-18 10:25 | Day surgery (SDC) | payer MEDICARE, BC, MEDICAID ==
[~2024-04-18] VITALS: Ht 165.1 cm; Wt 70.1 kg
[2024-04-18] MEDS ORDERED: LR 1,000 ML IV SCH (10:45)
[2024-04-18] MEDS ORDERED: GLUCOSE 4 GM CHEW PO PRN (11:15)
[2024-04-18] MEDS ORDERED: DEXTROSE 50% 50ML SYRINGE IV PRN (11:15)
[2024-04-18] MEDS ORDERED: GLUCAGON INJ 1MG VIAL SC PRN (11:15)
[2024-04-18] MEDS: INSULIN LISPRO (NovoLOG) PER UNIT SC PRN (11:26)
[2024-04-18] MEDS ORDERED: MIDAZOLAM INJ 2MG/2ML VIAL As Ordered ONE (12:30)
[2024-04-18] MEDS: PHENYLEPHRINE 0.5% NASAL SPRAY 15 ML As Ordered ONE (13:13)
[2024-04-18] MEDS: LIDOCAINE W/EPINEPHRINE 1% 20ML VIAL As Ordered ONE (13:13)
[2024-04-18] MEDS ORDERED: GLYCOPYRROLATE INJ 0.2 MG/ML 2 ML VIAL As Ordered ONE (13:53)
[2024-04-18] MEDS ORDERED: KETOROLAC 60MG 2ML VIAL As Ordered ONE (14:04)
[2024-04-18] MEDS ORDERED: ONDANSETRON 4MG 2ML VIAL As Ordered ONE (14:06)
[2024-04-18 16:15] VITALS: BP 109/62; TEMP 97; O2SAT 88
== END 2024-04-18 16:35 | disposition home or self-care (01) ==
LOC: M SDC 10:25
PROVIDERS: ATTEND Otolaryngology
DX: J95.03 Malfunction of tracheostomy stoma (principal); J44.9 Chronic obstructive pulmonary disease, unspecified; I25.10 Atherosclerotic heart disease of native coronary artery without angina pectoris; I10 Essential (primary) hypertension; I25.2 Old myocardial infarction; E11.9 Type 2 diabetes mellitus without complications; Z79.899 Other long term (current) drug therapy; Z79.82 Long term (current) use of aspirin; Z79.84 Long term (current) use of oral hypoglycemic drugs; Z90.49 Acquired absence of other specified parts of digestive tract; Z88.2 Allergy status to sulfonamides; Z95.5 Presence of coronary angioplasty implant and graft
CPT/HCPCS: 31502; J1100; J1815; J1885; J2250; J2405

== ENCOUNTER 2024-09-05 12:18 | Day surgery (SDC) | payer MEDICARE, BC ==
[~2024-09-05] VITALS: Ht 165.1 cm; Wt 68.6 kg
[~2024-09-05 12:18] MED LIST changes: +BUDE0.5S6 NEB; +SODI0.9N3 TR; +[UNRECOGNIZED DRUG - CODE] IV; +[UNRECOGNIZED DRUG - CODE] IV
[2024-09-05] MEDS ORDERED: LR 1,000 ML IV SCH (13:05)
[2024-09-05 13:12] LABS: HEMATOCRIT 42.3 % (36.0-47.0); HEMOGLOBIN 13.3 g/dl (12.0-15.5); MEAN CORPUSCULAR HEMOGLOBIN 27.7 pg (27.0-33.0); MEAN CORPUSCULAR HGB CONC 31.4 g/dl (32.0-36.5); MEAN CORPUSCULAR VOLUME 87.9 fl (80.0-96.0); PLATELET COUNT, AUTOMATED 301 10^3/uL (150-450); RED BLOOD COUNT 4.81 10^6/uL (4.00-5.40); WHITE BLOOD COUNT 7.1 10^3/uL (4.0-10.0)
[2024-09-05] MEDS ORDERED: INSULIN LISPRO (NovoLOG) PER UNIT SC PRN (13:15)
[2024-09-05] MEDS ORDERED: GLUCAGON INJ 1MG VIAL SC PRN (13:15)
[2024-09-05] MEDS ORDERED: GLUCOSE 4 GM CHEW PO PRN (13:15)
[2024-09-05] MEDS ORDERED: DEXTROSE 50% 50ML SYRINGE IV PRN (13:15)
[2024-09-05 13:33] LABS: BLOOD UREA NITROGEN 11 MG/DL (9-23); CARBON DIOXIDE LEVEL 30 MMOL/L (20-31); CHLORIDE LEVEL 103 MMOL/L (98-107); CREATININE FOR GFR 0.49 MG/DL (0.55-1.30); GLOMERULAR FILTRATION RATE > 60.0 (>45); GLUCOSE, FASTING 205 MG/DL (74-106); POTASSIUM SERUM 4.2 MMOL/L (3.5-5.1); SODIUM LEVEL 137 MMOL/L (136-145)
[2024-09-05] MEDS ORDERED: propofoL 200 MG/20 ML VIAL As Ordered ONE (14:25)
[2024-09-05] MEDS ORDERED: LIDOCAINE 2% 100MG/5ML SDV (FOR ANES.) As Ordered ONE (14:26)
[2024-09-05] MEDS ORDERED: MIDAZOLAM INJ 2MG/2ML VIAL As Ordered ONE (14:27)
[2024-09-05] MEDS ORDERED: ACETAMINOPHEN 1000MG 100ML IV BAG As Ordered ONE (14:45)
[2024-09-05] MEDS: PHENYLEPHRINE 0.5% NASAL SPRAY 15 ML As Ordered ONE (14:55)
[2024-09-05] MEDS: LIDOCAINE W/EPINEPHRINE 1% 20ML VIAL As Ordered ONE (14:55)
[2024-09-05 15:55] VITALS: BP 96/58; TEMP 97.9; O2SAT 91
== END 2024-09-05 16:13 | disposition home or self-care (01) ==
LOC: M SDC 12:18
PROVIDERS: ATTEND Otolaryngology
DX: J95.03 Malfunction of tracheostomy stoma (principal); J96.12 Chronic respiratory failure with hypercapnia; J43.8 Other emphysema; R73.03 Prediabetes; I10 Essential (primary) hypertension; I25.10 Atherosclerotic heart disease of native coronary artery without angina pectoris; I25.2 Old myocardial infarction; Z95.5 Presence of coronary angioplasty implant and graft; Z79.899 Other long term (current) drug therapy; Z79.82 Long term (current) use of aspirin; Z79.84 Long term (current) use of oral hypoglycemic drugs; Z88.2 Allergy status to sulfonamides; Z90.49 Acquired absence of other specified parts of digestive tract; Z86.14 Personal history of Methicillin resistant Staphylococcus aureus infection; Z87.891 Personal history of nicotine dependence
CPT/HCPCS: 31502; 36415; 80048; 85027; J0131; J2250

== ENCOUNTER → 2025-01-09 | Outpatient (REF) | payer MEDICARE, BC ==
[2025-01-09 16:42] LABS: BASO # 0.1 10^3/uL (0.0-0.2); BASO % 0.7 % (0.0-1.0); EOS # 0.2 10^3/uL (0.0-0.5); EOS % 1.8 % (0.0-3.0); HEMOGLOBIN 13.6 g/dl (12.0-15.5); LYMPH % 23.6 % (24.0-44.0); MEAN CORPUSCULAR HEMOGLOBIN 27.9 pg (27.0-33.0); MEAN CORPUSCULAR HGB CONC 31.6 g/dl (32.0-36.5); MEAN CORPUSCULAR VOLUME 88.3 fl (80.0-96.0); MONO # 0.6 10^3/uL (0.0-0.8); MONO % 7.7 % (2.0-8.0); NEUTROPHILS # 5.5 10^3/uL (1.5-8.5); NEUTROPHILS % 65.8 % (36.0-66.0); PLATELET COUNT, AUTOMATED 276 10^3/uL (150-450); RED BLOOD COUNT 4.87 10^6/uL (4.00-5.40); WHITE BLOOD COUNT 8.3 10^3/uL (4.0-10.0)
[2025-01-09 17:10] LABS: ALBUMIN 3.1 G/DL (3.2-5.2); ALKALINE PHOSPHATASE 164 U/L (35-104); ALT/SGPT 17 U/L (7.0-40); AST/SGOT 14 U/L (<34); BILIRUBIN,TOTAL 0.2 MG/DL (0.3-1.2); BLOOD UREA NITROGEN 8 MG/DL (9-23); CALCIUM LEVEL 8.9 MG/DL (8.3-10.6); CARBON DIOXIDE LEVEL 30 MMOL/L (20-31); CHLORIDE LEVEL 102 MMOL/L (98-107); GLOMERULAR FILTRATION RATE > 60.0 (>45); GLUCOSE, FASTING 269 MG/DL (74-106); POTASSIUM SERUM 4.9 MMOL/L (3.5-5.1); SODIUM LEVEL 139 MMOL/L (136-145); TOTAL PROTEIN 7.6 G/DL (5.7-8.2)
[2025-01-09 17:11] LABS: IMMUNOGLOBULIN G 1403 MG/DL (650-1600)
== END ==
LOC: M LAB REF 16:01
PROVIDERS: ATTEND Psychiatry & Neurology Neurology
DX: G61.81 Chronic inflammatory demyelinating polyneuritis (principal); M62.81 Muscle weakness (generalized); Z99.3 Dependence on wheelchair

== ENCOUNTER 2025-01-16 06:08 | Day surgery (SDC) | payer MEDICARE, BC ==
[~2025-01-16] VITALS: Ht 167.6 cm; Wt 68.9 kg
[2025-01-16] MEDS ORDERED: LR 1,000 ML IV SCH (06:50)
[2025-01-16] MEDS: INSULIN LISPRO (NovoLOG) PER UNIT SC PRN (07:15)
[2025-01-16] MEDS ORDERED: MIDAZOLAM INJ 2MG/2ML VIAL As Ordered ONE (08:04)
[2025-01-16] MEDS ORDERED: LIDOCAINE 2% 100MG/5ML SDV (FOR ANES.) As Ordered ONE (08:05)
[2025-01-16] MEDS ORDERED: propofoL 200 MG/20 ML VIAL As Ordered ONE (08:05)
[2025-01-16] MEDS ORDERED: ONDANSETRON 4MG 2ML VIAL As Ordered ONE (08:20)
[2025-01-16] MEDS: LIDOCAINE W/EPINEPHRINE 1% 20ML VIAL As Ordered ONE (08:58)
[2025-01-16] MEDS ORDERED: fentaNYL 100 MCG/2 ML INJECTION IV PRN (09:00)
[2025-01-16] MEDS ORDERED: ONDANSETRON 4MG 2ML VIAL IV PRN (09:00)
[2025-01-16 10:18] VITALS: BP 123/69; TEMP 97.5; O2SAT 91
== END 2025-01-16 10:24 | disposition home or self-care (01) ==
LOC: M SDC 06:08
PROVIDERS: ATTEND Otolaryngology
DX: J95.03 Malfunction of tracheostomy stoma (principal); J44.9 Chronic obstructive pulmonary disease, unspecified; I10 Essential (primary) hypertension; I25.10 Atherosclerotic heart disease of native coronary artery without angina pectoris; I25.2 Old myocardial infarction; R73.03 Prediabetes; Z79.899 Other long term (current) drug therapy; Z79.84 Long term (current) use of oral hypoglycemic drugs; Z95.5 Presence of coronary angioplasty implant and graft; Z90.49 Acquired absence of other specified parts of digestive tract; Z88.2 Allergy status to sulfonamides; Z86.14 Personal history of Methicillin resistant Staphylococcus aureus infection; Z87.891 Personal history of nicotine dependence
CPT/HCPCS: 31502; 93005; J1815; J2250; J2405

== ENCOUNTER → 2025-02-06 | Outpatient (REF) | payer MEDICARE, BC ==
[2025-02-06 16:33] LABS: BASO % 0.5 % (0.0-1.0); EOS # 0.2 10^3/uL (0.0-0.5); EOS % 1.9 % (0.0-3.0); HEMATOCRIT 38.7 % (36.0-47.0); HEMOGLOBIN 12.4 g/dl (12.0-15.5); LYMPH # 1.7 10^3/uL (1.5-5.0); LYMPH % 21.3 % (24.0-44.0); MEAN CORPUSCULAR HEMOGLOBIN 28.4 pg (27.0-33.0); MEAN CORPUSCULAR VOLUME 88.6 fl (80.0-96.0); MONO # 0.7 10^3/uL (0.0-0.8); MONO % 9.4 % (2.0-8.0); NEUTROPHILS # 5.3 10^3/uL (1.5-8.5); NEUTROPHILS % 66.6 % (36.0-66.0); PLATELET COUNT, AUTOMATED 251 10^3/uL (150-450); RED BLOOD COUNT 4.37 10^6/uL (4.00-5.40); WHITE BLOOD COUNT 7.9 10^3/uL (4.0-10.0)
[2025-02-06 16:59] LABS: ALBUMIN 2.9 G/DL (3.2-5.2); ALKALINE PHOSPHATASE 141 U/L (35-104); ALT/SGPT 15 U/L (7.0-40); AST/SGOT 14 U/L (<34); BILIRUBIN,TOTAL 0.2 MG/DL (0.3-1.2); BLOOD UREA NITROGEN 7 MG/DL (9-23); CALCIUM LEVEL 8.3 MG/DL (8.3-10.6); CARBON DIOXIDE LEVEL 32 MMOL/L (20-31); CHLORIDE LEVEL 103 MMOL/L (98-107); CREATININE FOR GFR 0.42 MG/DL (0.55-1.30); GLOMERULAR FILTRATION RATE > 60.0 (>45); GLUCOSE, FASTING 251 MG/DL (74-106); IMMUNOGLOBULIN G 1273 MG/DL (650-1600); POTASSIUM SERUM 4.2 MMOL/L (3.5-5.1); SODIUM LEVEL 141 MMOL/L (136-145); TOTAL PROTEIN 7.1 G/DL (5.7-8.2)
== END ==
LOC: M LAB REF 15:54
PROVIDERS: ATTEND Psychiatry & Neurology Neurology
DX: M62.81 Muscle weakness (generalized) (principal); G61.81 Chronic inflammatory demyelinating polyneuritis; Z99.3 Dependence on wheelchair

== ENCOUNTER → 2025-03-10 | Outpatient (REF) | payer MEDICARE, BC ==
[2025-03-10 18:17] LABS: BASO % 0.5 % (0.0-1.0); EOS # 0.1 10^3/uL (0.0-0.5); EOS % 1.5 % (0.0-3.0); HEMATOCRIT 41.3 % (36.0-47.0); HEMOGLOBIN 12.8 g/dl (12.0-15.5); LYMPH # 2.1 10^3/uL (1.5-5.0); LYMPH % 26.3 % (24.0-44.0); MEAN CORPUSCULAR HEMOGLOBIN 27.7 pg (27.0-33.0); MEAN CORPUSCULAR VOLUME 89.4 fl (80.0-96.0); MONO # 0.7 10^3/uL (0.0-0.8); MONO % 8.4 % (2.0-8.0); NEUTROPHILS % 63.2 % (36.0-66.0); PLATELET COUNT, AUTOMATED 277 10^3/uL (150-450); RED BLOOD COUNT 4.62 10^6/uL (4.00-5.40); WHITE BLOOD COUNT 7.9 10^3/uL (4.0-10.0)
[2025-03-10 18:50] LABS: ALBUMIN 3.1 G/DL (3.2-5.2); ALKALINE PHOSPHATASE 147 U/L (35-104); ALT/SGPT 16 U/L (7.0-40); AST/SGOT 17 U/L (<34); BILIRUBIN,TOTAL 0.2 MG/DL (0.3-1.2); BLOOD UREA NITROGEN 9 MG/DL (9-23); CALCIUM LEVEL 8.5 MG/DL (8.3-10.6); CARBON DIOXIDE LEVEL 32 MMOL/L (20-31); CHLORIDE LEVEL 101 MMOL/L (98-107); CREATININE FOR GFR 0.43 MG/DL (0.55-1.30); GLOMERULAR FILTRATION RATE > 90.0 (>45); GLUCOSE, FASTING 207 MG/DL (74-106); IMMUNOGLOBULIN G 1239 MG/DL (650-1600); IMMUNOGLOBULIN M 100.8 MG/DL (50-300); POTASSIUM SERUM 4.4 MMOL/L (3.5-5.1); SODIUM LEVEL 142 MMOL/L (136-145); TOTAL PROTEIN 7.4 G/DL (5.7-8.2)
[2025-03-10 19:01] LABS: IMMUNOGLOBULIN A 706.4 MG/DL (40-350)
== END ==
LOC: M LAB REF 16:05
PROVIDERS: ATTEND Psychiatry & Neurology Neurology
DX: G61.81 Chronic inflammatory demyelinating polyneuritis (principal); M62.81 Muscle weakness (generalized); Z99.3 Dependence on wheelchair

== ENCOUNTER → 2025-05-15 | Outpatient (REF) | payer MEDICARE, BC ==
[~2025-05-15] MED LIST changes: +MAGN400C PO
[2025-05-15 16:12] LABS: BASO # 0.0 10^3/uL (0.0-0.2); BASO % 0.4 % (0.0-1.0); EOS # 0.1 10^3/uL (0.0-0.5); EOS % 1.5 % (0.0-3.0); LYMPH # 1.6 10^3/uL (1.5-5.0); LYMPH % 18.1 % (24.0-44.0); MONO # 0.7 10^3/uL (0.0-0.8); MONO % 8.0 % (2.0-8.0); NEUTROPHILS # 6.5 10^3/uL (1.5-8.5); NEUTROPHILS % 71.7 % (36.0-66.0); PLATELET COUNT, AUTOMATED 323 10^3/uL (150-450)
[2025-05-15 16:36] LABS: ALT/SGPT 13 U/L (7.0-40); AST/SGOT 18 U/L (<34); CALCIUM LEVEL 8.3 MG/DL (8.3-10.6); CARBON DIOXIDE LEVEL 29 MMOL/L (20-31); CHLORIDE LEVEL 100 MMOL/L (98-107); CREATININE FOR GFR 0.42 MG/DL (0.55-1.30); GLOMERULAR FILTRATION RATE > 90.0 (>45); POTASSIUM SERUM 4.2 MMOL/L (3.5-5.1); SODIUM LEVEL 140 MMOL/L (136-145)
== END ==
LOC: M LAB REF 15:51
PROVIDERS: ATTEND Psychiatry & Neurology Neurology
DX: G61.81 Chronic inflammatory demyelinating polyneuritis (principal); M62.81 Muscle weakness (generalized); Z99.3 Dependence on wheelchair

== ENCOUNTER → 2025-06-12 | Outpatient (REF) | payer MEDICARE, BC ==
[2025-06-12 16:12] LABS: BASO # 0.1 10^3/uL (0.0-0.2); BASO % 0.8 % (0.0-1.0); EOS # 0.2 10^3/uL (0.0-0.5); EOS % 1.9 % (0.0-3.0); LYMPH # 1.9 10^3/uL (1.5-5.0); LYMPH % 20.8 % (24.0-44.0); MONO # 0.6 10^3/uL (0.0-0.8); MONO % 7.2 % (2.0-8.0); NEUTROPHILS # 6.2 10^3/uL (1.5-8.5); NEUTROPHILS % 69.2 % (36.0-66.0); PLATELET COUNT, AUTOMATED 325 10^3/uL (150-450)
[2025-06-12 16:35] LABS: ALT/SGPT 15 U/L (7.0-40); AST/SGOT 31 U/L (<34); CALCIUM LEVEL 8.4 MG/DL (8.3-10.6); CARBON DIOXIDE LEVEL 29 MMOL/L (20-31); CHLORIDE LEVEL 103 MMOL/L (98-107); CREATININE FOR GFR 0.47 MG/DL (0.55-1.30); GLOMERULAR FILTRATION RATE > 90.0 (>45); POTASSIUM SERUM 5.0 MMOL/L (3.5-5.1); SODIUM LEVEL 144 MMOL/L (136-145)
[2025-06-16 13:17] LABS: IgG SERUM (part of Subclasses) 1101.0 mg/dL (600-1540)
== END ==
LOC: M LAB REF 15:35
PROVIDERS: ATTEND Psychiatry & Neurology Neurology
DX: G61.81 Chronic inflammatory demyelinating polyneuritis (principal); M62.81 Muscle weakness (generalized); Z99.3 Dependence on wheelchair

== ENCOUNTER 2025-08-07 11:24 | Day surgery (SDC) | payer MEDICARE, BC ==
[~2025-08-07] VITALS: Ht 165.1 cm; Wt 63.5 kg
[2025-08-07] MEDS: LR 1,000 ML IV SCH (13:04)
[2025-08-07] MEDS ORDERED: LIDOCAINE 2% 100 MG/5 ML SDV (FOR ANES.) As Ordered ONE (14:06)
[2025-08-07] MEDS: SCOPOLAMINE 1MG TRANSDERMAL PATCH TOP ONE (14:06)
[2025-08-07] MEDS ORDERED: LIDOCAINE W/EPINEPHrine 1% 20 ML VIAL As Ordered ONE (14:53)
[2025-08-07] MEDS ORDERED: MIDAZOLAM INJ 2 MG/2 ML VIAL As Ordered ONE (14:59)
[2025-08-07] MEDS ORDERED: MORPHINE 4 MG/ML 1 ML VIAL IV PRN (15:30)
[2025-08-07 16:15] VITALS: BP 164/89; TEMP 97.8; O2SAT 97
[2025-08-07] MEDS: ONDANSETRON 4MG 2ML VIAL IV PRN (16:18)
== END 2025-08-07 17:10 | disposition home or self-care (01) ==
LOC: M SDC 11:24
PROVIDERS: ATTEND Otolaryngology
DX: J95.03 Malfunction of tracheostomy stoma (principal)
CPT/HCPCS: 31502; J2250; J2405; J3010

== ENCOUNTER → 2025-10-02 | Outpatient (REF) | payer MEDICARE, BC ==
[2025-10-02 17:15] LABS: ALT/SGPT 17 U/L (7.0-40); AST/SGOT 21 U/L (<34); CALCIUM LEVEL 8.4 MG/DL (8.3-10.6); CARBON DIOXIDE LEVEL 32 MMOL/L (20-31); CHLORIDE LEVEL 102 MMOL/L (98-107); CREATININE FOR GFR 0.46 MG/DL (0.55-1.30); GLOMERULAR FILTRATION RATE > 90.0 (>45); POTASSIUM SERUM 4.6 MMOL/L (3.5-5.1); SODIUM LEVEL 142 MMOL/L (136-145)
[2025-10-02 17:20] LABS: BASO # 0.1 10^3/uL (0.0-0.2); BASO % 0.7 % (0.0-1.0); EOS # 0.1 10^3/uL (0.0-0.5); EOS % 1.7 % (0.0-3.0); LYMPH # 2.1 10^3/uL (1.5-5.0); LYMPH % 24.9 % (24.0-44.0); MONO # 0.7 10^3/uL (0.0-0.8); MONO % 8.0 % (2.0-8.0); NEUTROPHILS # 5.4 10^3/uL (1.5-8.5); NEUTROPHILS % 64.5 % (36.0-66.0); PLATELET COUNT, AUTOMATED 306 10^3/uL (150-450)
== END ==
LOC: M LAB REF 16:19
PROVIDERS: ATTEND Psychiatry & Neurology Neurology
DX: G61.81 Chronic inflammatory demyelinating polyneuritis (principal); M62.81 Muscle weakness (generalized); Z99.3 Dependence on wheelchair

== ENCOUNTER → 2025-10-30 | Outpatient (REF) | payer MEDICARE, BC ==
[2025-10-30 16:04] LABS: BASO # 0.1 10^3/uL (0.0-0.2); BASO % 0.8 % (0.0-1.0); EOS # 0.2 10^3/uL (0.0-0.5); EOS % 2.2 % (0.0-3.0); LYMPH # 1.6 10^3/uL (1.5-5.0); LYMPH % 20.7 % (24.0-44.0); MONO # 0.7 10^3/uL (0.0-0.8); MONO % 8.9 % (2.0-8.0); NEUTROPHILS # 5.1 10^3/uL (1.5-8.5); NEUTROPHILS % 67.3 % (36.0-66.0); PLATELET COUNT, AUTOMATED 264 10^3/uL (150-450)
[2025-10-30 16:30] LABS: ALT/SGPT 14 U/L (7.0-40); AST/SGOT 17 U/L (<34); CALCIUM LEVEL 8.4 MG/DL (8.3-10.6); CARBON DIOXIDE LEVEL 34 MMOL/L (20-31); CHLORIDE LEVEL 99 MMOL/L (98-107); CREATININE FOR GFR 0.44 MG/DL (0.55-1.30); GLOMERULAR FILTRATION RATE > 90.0 (>45); POTASSIUM SERUM 4.1 MMOL/L (3.5-5.1); SODIUM LEVEL 140 MMOL/L (136-145)
[2025-11-04 15:27] LABS: IgG SERUM (part of Subclasses) 1171.0 mg/dL (600-1540)
== END ==
LOC: M LAB REF 15:43
PROVIDERS: ATTEND Psychiatry & Neurology Neurology
DX: G61.81 Chronic inflammatory demyelinating polyneuritis (principal); M62.81 Muscle weakness (generalized); Z99.3 Dependence on wheelchair